=== PATIENT | female | born 1980 | race Two or more races ===

== ENCOUNTER 2018-12-01 20:19 | Emergency (ER) | payer MEDICAID ==
[~2018-12-01] VITALS: Ht 149.9 cm; Wt 69.0 kg
[2018-12-02 02:16] LABS: CLARITY URINE CLOUDY (CLEAR); COLOR URINE YELLOW (YELLOW); KETONES URINE NEGATIVE (NEGATIVE); LEUKOCYTE ESTERASE URINE 3+ (NEGATIVE); NITRITE URINE POSITIVE (NEGATIVE); OCCULT BLOOD URINE 1+ (NEGATIVE); PROTEIN URINE NEGATIVE (NEGATIVE); SPECIFIC GRAVITY URINE 1.011 (1.005-1.030); UROBILINOGEN URINE 0.2 E.U./dL (0.2-1.0)
[2018-12-02 02:16] LABS: CHLORIDE 101 mEq/L (98-107)
[2018-12-02 02:23] LABS: BASOPHILS % 0.4 % (0.0-2.0); EOSINOPHILS % 0.5 % (0.0-5.0); HCG SCREEN NEGATIVE; HEMATOCRIT. 41.8 % (36.0-48.0); HEMOGLOBIN. 13.8 g/dL (12.0-16.0); LYMPHOCYTES % 18.4 % (20.0-50.0); MEAN CORPUSCULAR HEMOGLOBIN 27.2 pg (28.0-32.0); MEAN CORPUSCULAR VOLUME 82.7 fL (81.0-99.0); MEAN PLATELET VOLUME 7.1 fl (7.4-10.4); NEUTROPHILS % 73.7 % (40.0-76.0); PLATELET 431 x1000/uL (130-400); RED BLOOD CELL COUNT 5.05 mill/uL (4.2-5.4); RED CELL DISTRIBUTION WIDTH 16.7 % (11.6-14.6)
[2018-12-02] MEDS ORDERED: CEFTRIAXONE 1 G PREMIX 50 ML IV ONE (03:30)
[2018-12-02] MEDS ORDERED: SODIUM CHLORIDE 0.9% 1,000 ML IV ONE (03:30)
[2018-12-02] MEDS ORDERED: ONDANSETRON HCL 4MG/2ML INJ IV STA (03:30)
[2018-12-02] MEDS ORDERED: KETOROLAC 30MG/ML VIAL IV STA (03:30)
[2018-12-02 05:35] VITALS: BP 155/97
== END 2018-12-02 05:16 | disposition home or self-care (01) ==
LOC: ER 20:19
DX: N39.0 Urinary tract infection, site not specified (principal)
CPT/HCPCS: 36415; 80053; 81003; 83605; 83690; 84703; 85025; 85610; 87077; 87086; 87186; 96365; 96375; 99283; J0696; J1885; J2405; J7030

== ENCOUNTER 2022-07-13 21:16 | Inpatient (IN) | payer MEDICAID ==
[~2022-07-13] VITALS: Ht 149.9 cm; Wt 66.2 kg
[2022-07-14] MEDS ORDERED: ONDANSETRON HCL 4MG/2ML INJ IV STA (00:18)
[2022-07-14] MEDS ORDERED: MORPHINE SULFATE 4 MG/ML CPJ (NOT FOR IM USE) IV STA (00:18)
[2022-07-14] MEDS ORDERED: SODIUM CHLORIDE 0.9% 1,000 ML IV ONE (00:30)
[2022-07-14 00:54] LABS: BASOPHILS % 0.7 % (0.0-2.0); EOSINOPHILS % 0.1 % (0.0-5.0); HEMOGLOBIN. 9.3 g/dL (12.0-16.0); LYMPHOCYTES % 9.5 % (20.0-50.0); MEAN CORPUSCULAR HEMOGLOBIN 17.7 pg (28.0-32.0); MEAN CORPUSCULAR VOLUME 58.8 fL (81.0-99.0); MEAN PLATELET VOLUME 6.9 fl (7.4-10.4); MONOCYTES % 5.4 % (2.0-8.0); NEUTROPHILS % 84.3 % (40.0-76.0); PLATELET 586 x1000/uL (130-400); RED BLOOD CELL COUNT 5.26 mill/uL (4.2-5.4); RED CELL DISTRIBUTION WIDTH 18.6 % (11.6-14.6)
[2022-07-14 01:19] LABS: CHLORIDE 95 mEq/L (98-107)
[2022-07-14 01:50] LABS: HCG SCREEN NEGATIVE
[2022-07-14] MEDS ORDERED: HYDR-4001 MT ×2 (03:42)
[2022-07-14] MEDS ORDERED: IBUP-2028 MT (03:42)
[2022-07-14 04:46] LABS: PLATELET ESTIMATE INCREASED
[2022-07-14] MEDS ORDERED: PIPERACILLIN/TAZOBACTAM 3.375GM/50ML PREMIX IV ONE (05:00)
[2022-07-14] MEDS ORDERED: PIPERACILLIN/TAZ 3.375G PREMIX 50 ML IV NR (05:15)
[2022-07-14] MEDS ORDERED: CLONIDINE 0.1MG TABLET PO PRN (10:00)
[2022-07-14] MEDS ORDERED: IPRATROPIUM/ALBUTEROL 0.5-3(2.5)MG/3ML NEB HHN PRN (10:00)
[2022-07-14] MEDS ORDERED: ONDANSETRON HCL 4MG/2ML INJ IV PRN (10:00)
[2022-07-14] MEDS ORDERED: DIPHENHYDRAMINE 50MG/ML VIAL IV PRN (10:00)
[2022-07-14] MEDS: MORPHINE SULFATE 2 MG/ML CPJ (NOT FOR IM USE) IV PRN ×3 (10:11→22:21)
[2022-07-14] MEDS: SODIUM CHLORIDE 0.9% 1,000 ML IV SCH ×2 (10:17→23:59)
[2022-07-14 14:00] VITALS: BP 140/81
[2022-07-14] MEDS: PIPERACILLIN/TAZ 3.375G PREMIX 50 ML IV SCH ×2 (14:58→22:00)
[2022-07-14 16:00] VITALS: BP 119/94
[2022-07-15] MEDS: PIPERACILLIN/TAZ 3.375G PREMIX 50 ML IV SCH (06:00)
[2022-07-15 08:00] VITALS: BP 130/66
[2022-07-15 08:21] LABS: BASOPHILS % 1.1 % (0.0-2.0); EOSINOPHILS % 2.1 % (0.0-5.0); HEMOGLOBIN. 7.7 g/dL (12.0-16.0); LYMPHOCYTES % 29.1 % (20.0-50.0); MEAN CORPUSCULAR HEMOGLOBIN 17.7 pg (28.0-32.0); MEAN CORPUSCULAR VOLUME 59.3 fL (81.0-99.0); MEAN PLATELET VOLUME 7.5 fl (7.4-10.4); MONOCYTES % 13.2 % (2.0-8.0); NEUTROPHILS % 54.5 % (40.0-76.0); PLATELET 461 x1000/uL (130-400); RED BLOOD CELL COUNT 4.38 mill/uL (4.2-5.4); RED CELL DISTRIBUTION WIDTH 18.5 % (11.6-14.6)
[2022-07-15 08:31] LABS: CHLORIDE 102 mEq/L (98-107)
[2022-07-15] MEDS: ACETAMINOPHEN 325MG TABLET PO PRN ×2 (08:47→17:05)
[2022-07-15 12:19] VITALS: BP 113/74
[2022-07-15 12:40] LABS: TOTAL IRON BINDING CAPACITY 458 ug/dL (250-450)
[2022-07-15] MEDS: SODIUM CHLORIDE 0.9% 1,000 ML IV SCH (12:45)
[2022-07-15 13:01] LABS: FERRITIN < 5 ng/mL (10-291)
[2022-07-15 13:07] LABS: VITAMIN B12 SERUM 396 pg/mL (211-911)
[2022-07-15 16:00] VITALS: BP 140/68
[2022-07-15] MEDS: PIPERACILLIN/TAZOBACTAM 3.375G in DEXT 5% WATER 50ML IV SCH ×2 (16:13→23:00)
[2022-07-15] MEDS ORDERED: NALOXONE HCL 0.4MG/ML VIAL IV PRN (19:45)
[2022-07-15 20:00] VITALS: BP 124/44
[2022-07-16] VITALS: BP 104/56
[2022-07-16] MEDS: SODIUM CHLORIDE 0.9% 1,000 ML IV SCH ×2 (00:22→11:27)
[2022-07-16 04:00] VITALS: BP 105/56
[2022-07-16] MEDS: PIPERACILLIN/TAZOBACTAM 3.375G in DEXT 5% WATER 50ML IV SCH ×3 (05:55→22:02)
[2022-07-16 07:45] LABS: BASOPHILS % 1.1 % (0.0-2.0); EOSINOPHILS % 3.9 % (0.0-5.0); HEMATOCRIT. 25.4 % (36.0-48.0); HEMOGLOBIN. 7.9 g/dL (12.0-16.0); LYMPHOCYTES % 33.5 % (20.0-50.0); MEAN CORPUSCULAR HEMOGLOBIN 18.2 pg (28.0-32.0); MEAN CORPUSCULAR VOLUME 58.7 fL (81.0-99.0); MEAN PLATELET VOLUME 7.1 fl (7.4-10.4); MONOCYTES % 12.5 % (2.0-8.0); PLATELET 458 x1000/uL (130-400); RED BLOOD CELL COUNT 4.33 mill/uL (4.2-5.4)
[2022-07-16 07:46] LABS: CHLORIDE 105 mEq/L (98-107)
[2022-07-16] MEDS ORDERED: IRON SUCROSE COMPLEX 100 MG/5 ML ML IV SCH (09:15)
[2022-07-16] MEDS: MORPHINE SULFATE 2 MG/ML CPJ (NOT FOR IM USE) IV PRN ×2 (11:33→23:09)
[2022-07-16] MEDS ORDERED: IRON SUCROSE COMPLEX 200 MG in SODIUM CHLORIDE 0.9% 100 ML IV SCH (13:00)
[2022-07-16 20:00] VITALS: BP 152/69
[2022-07-17] VITALS: BP 142/77
[2022-07-17 04:00] VITALS: BP 140/75
[2022-07-17] MEDS: PIPERACILLIN/TAZOBACTAM 3.375G in DEXT 5% WATER 50ML IV SCH ×3 (06:07→23:02)
[2022-07-17] MEDS: SODIUM CHLORIDE 0.9% 1,000 ML IV SCH ×2 (06:08→17:16)
[2022-07-17 07:01] LABS: BASOPHILS % 0.8 % (0.0-2.0); EOSINOPHILS % 3.1 % (0.0-5.0); HEMATOCRIT. 26.2 % (36.0-48.0); HEMOGLOBIN. 8.2 g/dL (12.0-16.0); MEAN CORPUSCULAR HEMOGLOBIN 18.2 pg (28.0-32.0); MEAN CORPUSCULAR VOLUME 58.6 fL (81.0-99.0); MEAN PLATELET VOLUME 6.9 fl (7.4-10.4); MONOCYTES % 7.2 % (2.0-8.0); NEUTROPHILS % 74.9 % (40.0-76.0); PLATELET 488 x1000/uL (130-400); RED BLOOD CELL COUNT 4.47 mill/uL (4.2-5.4); RED CELL DISTRIBUTION WIDTH 19.2 % (11.6-14.6)
[2022-07-17 07:28] LABS: CHLORIDE 106 mEq/L (98-107)
[2022-07-17 08:00] VITALS: BP 128/71
[2022-07-17] MEDS: IRON SUCROSE COMPLEX 100 MG/5 ML ML IV SCH (09:13)
[2022-07-17 12:00] VITALS: BP 128/67
[2022-07-17 16:00] VITALS: BP 128/86
[2022-07-17 20:00] VITALS: BP 155/77
[2022-07-17] MEDS: MORPHINE SULFATE 2 MG/ML CPJ (NOT FOR IM USE) IV PRN (23:02)
[2022-07-18] VITALS: BP 148/73
[2022-07-18 04:00] VITALS: BP 142/74
[2022-07-18] MEDS: PIPERACILLIN/TAZOBACTAM 3.375G in DEXT 5% WATER 50ML IV SCH ×3 (05:52→23:02)
[2022-07-18] MEDS: SODIUM CHLORIDE 0.9% 1,000 ML IV SCH ×2 (07:28→20:40)
[2022-07-18 07:31] LABS: BASOPHILS % 0.8 % (0.0-2.0); EOSINOPHILS % 3.9 % (0.0-5.0); HEMATOCRIT. 27.1 % (36.0-48.0); HEMOGLOBIN. 8.2 g/dL (12.0-16.0); LYMPHOCYTES % 31.4 % (20.0-50.0); MEAN CORPUSCULAR VOLUME 59.6 fL (81.0-99.0); MEAN PLATELET VOLUME 7.1 fl (7.4-10.4); MONOCYTES % 12.3 % (2.0-8.0); NEUTROPHILS % 51.6 % (40.0-76.0); PLATELET 512 x1000/uL (130-400); RED BLOOD CELL COUNT 4.55 mill/uL (4.2-5.4)
[2022-07-18 07:36] LABS: CHLORIDE 103 mEq/L (98-107)
[2022-07-18 08:00] VITALS: BP 134/71
[2022-07-18] MEDS: IRON SUCROSE COMPLEX 100 MG/5 ML ML IV SCH (09:31)
[2022-07-18 10:46] LABS: PROTHROMBIN TIME 10.8 sec (9.6-11.0)
[2022-07-18] MEDS ORDERED: BUPIVACAINE HCL 0.5% (5MG/ML) 50ML ONE (11:22)
[2022-07-18] MEDS ORDERED: SKIN ADHESIVE 0.7 GM EA TOP ONE (11:22)
[2022-07-18 12:00] VITALS: BP 135/75
[2022-07-18] MEDS ORDERED: HYDROCODONE/ACETAMINOPHEN 5/325MG TABLET PO PRN ×2 (12:15)
[2022-07-18] MEDS ORDERED: ONDANSETRON HCL 4MG/2ML INJ IV PRN (12:15)
[2022-07-18] MEDS ORDERED: MORPHINE SULFATE 4 MG/ML CPJ (NOT FOR IM USE) IV PRN (12:15)
[2022-07-18] MEDS ORDERED: FENTANYL CITRATE/PF 50MCG/ML 2ML VIAL ONE ×2 (12:22→12:51)
[2022-07-18] MEDS ORDERED: PROPOFOL 200MG/20ML VIAL IV ONE (12:22)
[2022-07-18] MEDS ORDERED: ONDANSETRON HCL 4MG/2ML INJ ONE (12:22)
[2022-07-18] MEDS ORDERED: DEXAMETHASONE 4MG/ML 1ML VIAL ONE (12:22)
[2022-07-18] MEDS ORDERED: METOCLOPRAMIDE HCL 10MG/2ML VIAL ONE (12:22)
[2022-07-18] MEDS ORDERED: MIDAZOLAM HCL 2 MG/2 ML VIAL ONE (12:22)
[2022-07-18] MEDS ORDERED: KETOROLAC 30MG/ML VIAL ONE (12:22)
[2022-07-18] MEDS ORDERED: HYDRALAZINE 20MG/ML VIAL ONE (13:01)
[2022-07-18] MEDS ORDERED: SODIUM CHLORIDE 0.9% INJ 3ML FLUSH IVF SCH (14:00)
[2022-07-18] MEDS: MORPHINE SULFATE 2 MG/ML CPJ (NOT FOR IM USE) IV PRN ×3 (15:06→23:07)
[2022-07-18 16:00] VITALS: BP 117/60
[2022-07-18] MEDS: DEXT 5%/0.45% NACL KCL 20MEQ/L 1,000 ML IV SCH ×2 (19:00→23:02)
[2022-07-18 23:30] VITALS: BP 130/68
[2022-07-19 04:00] VITALS: BP 130/73
[2022-07-19] MEDS: PIPERACILLIN/TAZOBACTAM 3.375G in DEXT 5% WATER 50ML IV SCH (05:28)
[2022-07-19] MEDS: DEXT 5%/0.45% NACL KCL 20MEQ/L 1,000 ML IV SCH (05:29)
[2022-07-19] MEDS: MORPHINE SULFATE 2 MG/ML CPJ (NOT FOR IM USE) IV PRN ×3 (05:52→17:10)
[2022-07-19 08:45] LABS: BASOPHILS % 0.4 % (0.0-2.0); EOSINOPHILS % 0.3 % (0.0-5.0); HEMATOCRIT. 26.3 % (36.0-48.0); HEMOGLOBIN. 7.7 g/dL (12.0-16.0); LYMPHOCYTES % 15.3 % (20.0-50.0); MEAN CORPUSCULAR HEMOGLOBIN 17.9 pg (28.0-32.0); MEAN CORPUSCULAR VOLUME 61.1 fL (81.0-99.0); MONOCYTES % 9.7 % (2.0-8.0); NEUTROPHILS % 74.3 % (40.0-76.0); PLATELET 500 x1000/uL (130-400); RED BLOOD CELL COUNT 4.31 mill/uL (4.2-5.4); RED CELL DISTRIBUTION WIDTH 18.7 % (11.6-14.6)
[2022-07-19 08:49] LABS: CHLORIDE 103 mEq/L (98-107)
[2022-07-19] MEDS ORDERED: HYDR-4001 MT (13:30)
[2022-07-19] MEDS ORDERED: ONDA4TAB11 PO (13:30)
[2022-07-19 16:14] VITALS: BP 136/77
[2022-07-19 17:10] VITALS: BP 136/77
== END 2022-07-19 18:16 | disposition home or self-care (01) | DRG 263 ==
LOC: ER 21:16 → 6EST 07-14 04:57 → ENRESERV 07-14 10:34 → 6EST 07-14 15:20
PROVIDERS: ADMIT Internal Medicine; ATTEND Internal Medicine
PROC: 0FT44ZZ Resection of Gallbladder, Percutaneous Endoscopic Approach (ICD-10-PCS; principal; 2022-07-19)
DX: K80.00 Calculus of gallbladder with acute cholecystitis without obstruction (principal); K83.09 Other cholangitis
CPT/HCPCS: 36415; 74176; 76705; 78227; 80048; 80053; 82607; 82728; 82746; 82962; 83540; 83550; 83735; 84703; 85025; 87426; 88304; 93005; 93970; 99285; A9537; J0360; J1100; J1885; J2250; J2270; J2405; J2543; J2704; J2765; J3010; J3490; J7030; J7050; J7060